=== PATIENT | male | born 1965 | race Caucasian/White ===

== ENCOUNTER 2021-03-15 09:31 | Inpatient (IN) | payer MEDICARE ==
[2021-03-15] VITALS (8 sets, daily range): BP systolic 94–111; BP diastolic 59–73
[~2021-03-15] VITALS: Ht 193 cm; Wt 83.5 kg
[2021-03-15] MEDS ORDERED: SODIUM CHLORIDE 0.9% 1000ML 1,000 ML ONE ×3 (09:55→10:24)
[2021-03-15 09:59] LABS: BASOPHILS # (AUTO) 0.1 (0.0-0.1); BASOPHILS % 0.5 % (0.0-1.0); EOSINOPHILS % 0.2 % (0.0-6.0); HEMATOCRIT 53.5 % (38.2-49.6); HEMOGLOBIN 15.1 g/dL (14.0-18.0); LYMPHOCYTES # (AUTO) 1.6 (1.0-3.2); MEAN CORPUSCULAR HEMOGLOBIN 26.3 pg (28-32); MEAN CORPUSCULAR HGB CONC 28.2 g/dL (31-35); MONOCYTES # (AUTO) 0.6 (0.2-0.8); MONOCYTES % 3.2 % (4.4-11.3); NEUTROPHILS # (AUTO) 15.5 (2.1-6.9); NEUTROPHILS % 85.4 % (38.7-80.0); PLATELET COUNT 471 x10e3/uL (140-360); RED BLOOD COUNT 5.75 x10e6/uL (4.3-5.7); RED CELL DISTRIBUTION WIDTH 15.8 % (11.7-14.4)
[2021-03-15] MEDS ORDERED: CEFTRIAXONE 1 GM in SODIUM CHLORIDE 0.9% 50ML 50 ML IV ONE (10:00)
[2021-03-15 10:19] LABS: ALBUMIN 2.2 g/dL (3.5-5.0); ALBUMIN/GLOBULIN RATIO 0.4 (0.8-2.0); ANION GAP 39.6 mmol/L (8-16); CREATININE, SERUM 3.38 mg/dL (0.72-1.25); POTASSIUM 5.6 mmol/L (3.5-5.1)
[2021-03-15] MEDS ORDERED: SODIUM CHLORIDE 0.9% 1000ML 1,000 ML IV STA ×2 (10:22→14:57)
[2021-03-15] MEDS ORDERED: Vancomycin IV 1 GM in SODIUM CHLORIDE 0.9% 250ML 250 ML IV STA (10:30)
[2021-03-15] MEDS ORDERED: CEFEPIME 1 GM in SODIUM CHLORIDE 0.9% 50ML 50 ML IV ONE (10:30)
[2021-03-15] MEDS ORDERED: ONDANSETRON HCL INJ 2MG/ML 2ML 2 MG/ML VIAL IV STA (10:32)
[2021-03-15] MEDS: SODIUM CHLORIDE 0.9% 1000ML 1,000 ML IV SCH ×2 (10:34→10:44)
[2021-03-15] MEDS ORDERED: ALBUTEROL SULF 0.083% NEB SOLN 3 ML NEB NEB STA (10:42)
[2021-03-15] MEDS ORDERED: ONDANSETRON HCL INJ 2MG/ML 2ML 2 MG/ML VIAL ONE (10:44)
[2021-03-15] MEDS ORDERED: LORAZEPAM INJ 2 MG/ML VIAL IV ONE ×2 (10:45→11:00)
[2021-03-15] MEDS ORDERED: INSULIN REGULAR, HUMAN 3ML VL 100 UNIT in SODIUM CHLORIDE 0.9% 100 ML 99 ML IV SCH ×2 (10:45)
[2021-03-15] MEDS ORDERED: SODIUM CHLORIDE 0.9% 250ML 250 ML ONE (10:48)
[2021-03-15] MEDS ORDERED: TRIMETHOPRIM IV ONE (11:00)
[2021-03-15] MEDS ORDERED: METHYLPREDNISOLONE SOD SUCC 125 MG/2ML VIAL IV SCH (11:00)
[2021-03-15] MEDS ORDERED: DEXTROSE 5% IV ONE (11:00)
[2021-03-15] MEDS ORDERED: SULFAMETHOXAZOLE IV ONE (11:00)
[2021-03-15] MEDS ORDERED: SODIUM CHLORIDE 0.9% 250ML 250 ML IV ONE ×2 (11:15)
[2021-03-15 12:31] LABS: ABG PH 7.26 (7.35-7.45)
[2021-03-15 12:32] LABS: ABG HCO3 18 mmol/L (22-26); ABG PCO2 40 mmHg (35-45); ABG PO2 312 mmHg (80-105); ABG TCO2 19
[2021-03-15 12:45] LABS: CLARITY,URINE CLOUDY (CLEAR); COLOR,URINE YELLOW (YELLOW); KETONES,URINE TRACE (NEGATIVE); LEUKOCYTE ESTERASE ,URINE NEGATIVE (NEGATIVE); NITRITE,URINE NEGATIVE (NEGATIVE); PROTEIN,URINE DIPSTICK NEGATIVE (NEGATIVE); URINE UROBILINOGEN 0.2 mg/dL (0.2 - 1)
[2021-03-15 12:55] LABS: BACTERIA,URINE MANY /HPF; EPITHELIAL CELLS,URINE FEW /LPF
[2021-03-15] MEDS ORDERED: DEXTROSE 50% SYRINGE 50 ML IV PRN (14:00)
[2021-03-15] MEDS ORDERED: Vancomycin IV 1 GM in SODIUM CHLORIDE 0.9% 250ML 250 ML IV ONE (14:00)
[2021-03-15 14:09] LABS: ANION GAP 24.8 mmol/L (8-16); CALCIUM 7.4 mg/dL (8.4-10.2); CREATININE, SERUM 2.85 mg/dL (0.72-1.25); POTASSIUM 3.8 mmol/L (3.5-5.1)
[2021-03-15] MEDS: INSULIN REGULAR, HUMAN 3ML VL 100 UNIT in SODIUM CHLORIDE 0.9% 100 ML IV SCH ×2 (14:31)
[2021-03-15 14:34] LABS: CHOL/HDL RATIO 11.4 (3.9-4.7); CHOLESTEROL 227 MD/DL (0-199); HDL CHOLESTEROL 20 MG/DL (40-60); TRIGLYCERIDES 466 MG/DL (0-149)
[2021-03-15 14:57] LABS: FREE T4 (FREE THYROXINE) 0.89 ng/dL (0.8-1.8); THYROID STIMULATING HORMONE 1.068 uIU/mL (0.350-4.940)
[2021-03-15] MEDS ORDERED: CALCIUM GLUCONATE 10% INJ 4.65 MEQ in SODIUM CHLORIDE 0.9% 50ML 50 ML IV ONE (15:30)
[2021-03-15 17:13] LABS: ANION GAP 19.4 mmol/L (8-16); CALCIUM 7.8 mg/dL (8.4-10.2); CREATININE, SERUM 2.53 mg/dL (0.72-1.25); MAGNESIUM 2.7 MG/DL (1.3-2.1); POTASSIUM 3.4 mmol/L (3.5-5.1)
[2021-03-15 21:14] LABS: ANION GAP 16.6 mmol/L (8-16); CALCIUM 7.7 mg/dL (8.4-10.2); CREATININE, SERUM 2.29 mg/dL (0.72-1.25); POTASSIUM 3.6 mmol/L (3.5-5.1)
[2021-03-15] MEDS ORDERED: INSULIN REGULAR IN 0.9 % NACL 100 ML IV ONE (22:05)
[2021-03-16] VITALS (23 sets, daily range): BP systolic 86–117; BP diastolic 51–76
[2021-03-16] MEDS: INSULIN REGULAR, HUMAN 3ML VL 100 UNIT in SODIUM CHLORIDE 0.9% 100 ML IV SCH ×2 (04:16)
[2021-03-16 05:05] LABS: BASOPHILS # (AUTO) 0.1 (0.0-0.1); BASOPHILS % 0.4 % (0.0-1.0); EOSINOPHILS % 0.1 % (0.0-6.0); HEMATOCRIT 36.2 % (38.2-49.6); HEMOGLOBIN 11.5 g/dL (14.0-18.0); LYMPHOCYTES # (AUTO) 1.4 (1.0-3.2); LYMPHOCYTES % 8.1 % (18.0-39.1); MEAN CORPUSCULAR HEMOGLOBIN 26.3 pg (28-32); MEAN CORPUSCULAR HGB CONC 31.8 g/dL (31-35); MEAN CORPUSCULAR VOLUME 82.6 fL (81-99); MONOCYTES # (AUTO) 0.5 (0.2-0.8); MONOCYTES % 2.7 % (4.4-11.3); NEUTROPHILS # (AUTO) 15.5 (2.1-6.9); NEUTROPHILS % 87.7 % (38.7-80.0); PLATELET COUNT 340 x10e3/uL (140-360); RED BLOOD COUNT 4.38 x10e6/uL (4.3-5.7); RED CELL DISTRIBUTION WIDTH 14.8 % (11.7-14.4)
[2021-03-16 05:54] LABS: ANION GAP 12.7 mmol/L (8-16); CALCIUM 7.9 mg/dL (8.4-10.2); CREATININE, SERUM 1.7 mg/dL (0.72-1.25); POTASSIUM 3.7 mmol/L (3.5-5.1)
[2021-03-16] MEDS ORDERED: TRIUMEQ 600-501 EACH (11:21)
[2021-03-16] MEDS ORDERED: CYCLOBENZAPRINE5 MG PO (11:21)
[2021-03-16] MEDS ORDERED: VICODIN HP 10-1 EAC1 PO (11:21)
[2021-03-16] MEDS ORDERED: VINPAT PO (11:21)
[2021-03-16] MEDS: DEXTROSE 5% 1,000 ML IV SCH (14:51)
[2021-03-17] VITALS (13 sets, daily range): BP systolic 87–125; BP diastolic 45–70
[2021-03-17] MEDS: DEXTROSE 5% 1,000 ML IV SCH ×3 (00:30→20:15)
[2021-03-17] MEDS ORDERED: TRIUMEQ 600-501 EACH PO (05:48)
[2021-03-17] MEDS ORDERED: GABAPENTIN100 MG PO (05:48)
[2021-03-17] MEDS ORDERED: ESOMEPRAZOLE MA40 MG PO (05:48)
[2021-03-17] MEDS ORDERED: PIOGLITAZONE HC15 MG PO (05:48)
[2021-03-17] MEDS ORDERED: AMBIEN10 MG PO (05:48)
[2021-03-17] MEDS ORDERED: JANUVIA100 MG PO (05:48)
[2021-03-17] MEDS ORDERED: VIMPAT200 MG PO (05:48)
[2021-03-17 06:39] LABS: HEMATOCRIT 35.9 % (38.2-49.6); HEMOGLOBIN 11.1 g/dL (14.0-18.0); MEAN CORPUSCULAR HEMOGLOBIN 26.2 pg (28-32); MEAN CORPUSCULAR HGB CONC 30.9 g/dL (31-35); MEAN CORPUSCULAR VOLUME 84.7 fL (81-99); PLATELET COUNT 253 x10e3/uL (140-360); RED BLOOD COUNT 4.24 x10e6/uL (4.3-5.7); RED CELL DISTRIBUTION WIDTH 15.2 % (11.7-14.4)
[2021-03-17 06:59] LABS: ANION GAP 9.4 mmol/L (8-16); CALCIUM 7.9 mg/dL (8.4-10.2); CREATININE, SERUM 1.01 mg/dL (0.72-1.25); POTASSIUM 3.4 mmol/L (3.5-5.1)
[2021-03-17] MEDS: BALSAM PERU/CASTOR OIL 60 GM OINT...G. TP SCH (07:59)
[2021-03-17] MEDS ORDERED: CEFTRIAXONE 1 GM in SODIUM CHLORIDE 0.9% 50ML 50 ML IV SCH (09:00)
[2021-03-17 09:40] LABS: EOSINOPHILS % (MANUAL) 1 % (0-7); LYMPHOCYTES % (MANUAL) 8 % (19-48); MONOCYTES % (MANUAL) 1 % (3.4-9.0); NEUTROPHILS % (MANUAL) 89 % (40-74); PROMYELOCYTES % (MANUAL) 1 % (0-0)
[2021-03-17 09:41] LABS: PLATELET ESTIMATE ADEQUATE
[2021-03-17 09:42] LABS: PLATELET MORPHOLOGY COMMENT NORMAL; RBC MORPHOLOGY COMMENT NORMAL
[2021-03-17] MEDS ORDERED: POTASSIUM CHLORIDE 20 MEQ TAB CR PO STA (10:21)
[2021-03-17] MEDS ORDERED: BISMUTH SUBSALICYLATE 262 MG TAB PO PRN (14:15)
[2021-03-17] MEDS: LACOSAMIDE 50 MG TABLET PO SCH ×2 (15:06→21:31)
[2021-03-17] MEDS: GABAPENTIN 100 MG CAP PO SCH ×2 (15:06→21:31)
[2021-03-17] MEDS: LAMIVUDI PO SCH (15:25)
[2021-03-17] MEDS: ABACAVIR PO SCH (15:25)
[2021-03-17] MEDS: DOLUTEGRAVIR PO SCH (15:25)
[2021-03-17] MEDS ORDERED: CHOLESTYRAMINE 4 GM PACKET PO PRN (16:15)
[2021-03-17] MEDS: INSULIN LISPRO 100 UNIT/1 ML 3ML VIAL SQ SCH ×3 (16:30→21:00)
[2021-03-17] MEDS ORDERED: INSULIN LISPRO 100 UNIT/1 ML 3ML VIAL SQ ONE (16:30)
[2021-03-17] MEDS ORDERED: INSULIN GLARGINE 100 UNITS/ML VIAL SQ SCH ×2 (21:00)
[2021-03-18] VITALS (8 sets, daily range): BP systolic 85–125; BP diastolic 55–67
[2021-03-18] MEDS: DEXTROSE 5% 1,000 ML IV SCH ×2 (05:18→16:50)
[2021-03-18 06:34] LABS: BASOPHILS % 0.1 % (0.0-1.0); EOSINOPHILS # (AUTO) 0.1 (0.0-0.4); EOSINOPHILS % 0.6 % (0.0-6.0); HEMATOCRIT 34.5 % (38.2-49.6); HEMOGLOBIN 10.6 g/dL (14.0-18.0); LYMPHOCYTES # (AUTO) 1.3 (1.0-3.2); LYMPHOCYTES % 16.4 % (18.0-39.1); MEAN CORPUSCULAR HEMOGLOBIN 26.2 pg (28-32); MEAN CORPUSCULAR HGB CONC 30.7 g/dL (31-35); MEAN CORPUSCULAR VOLUME 85.2 fL (81-99); MONOCYTES # (AUTO) 0.3 (0.2-0.8); MONOCYTES % 3.5 % (4.4-11.3); NEUTROPHILS # (AUTO) 6.1 (2.1-6.9); NEUTROPHILS % 78.1 % (38.7-80.0); PLATELET COUNT 195 x10e3/uL (140-360); RED BLOOD COUNT 4.05 x10e6/uL (4.3-5.7); RED CELL DISTRIBUTION WIDTH 15.2 % (11.7-14.4)
[2021-03-18 06:57] LABS: ALBUMIN 1.6 g/dL (3.5-5.0); ALBUMIN/GLOBULIN RATIO 0.4 (0.8-2.0); ANION GAP 15.1 mmol/L (8-16); CALCIUM 7.7 mg/dL (8.4-10.2); CREATININE, SERUM 1.08 mg/dL (0.72-1.25); POTASSIUM 4.1 mmol/L (3.5-5.1)
[2021-03-18] MEDS: INSULIN LISPRO 100 UNIT/1 ML 3ML VIAL SQ SCH ×7 (07:30→20:57)
[2021-03-18] MEDS: CEFTRIAXONE 1 GM in SODIUM CHLORIDE 0.9% 50ML 50 ML IV SCH (08:49)
[2021-03-18] MEDS: BALSAM PERU/CASTOR OIL 60 GM OINT...G. TP SCH (08:50)
[2021-03-18] MEDS: LACOSAMIDE 50 MG TABLET PO SCH ×3 (08:50→20:56)
[2021-03-18] MEDS: DOLUTEGRAVIR PO SCH (08:50)
[2021-03-18] MEDS: LAMIVUDI PO SCH (08:50)
[2021-03-18] MEDS: ABACAVIR PO SCH (08:50)
[2021-03-18] MEDS: GABAPENTIN 100 MG CAP PO SCH ×3 (08:50→20:56)
[2021-03-18 09:18] LABS: LYMPHOCYTES % (MANUAL) 18 % (19-48); MONOCYTES % (MANUAL) 1 % (3.4-9.0); NEUTROPHILS % (MANUAL) 79 % (40-74); PLATELET ESTIMATE ADEQUATE; PLATELET MORPHOLOGY COMMENT NORMAL; RBC MORPHOLOGY COMMENT NORMAL
[2021-03-18] MEDS: INSULIN GLARGINE 100 UNITS/ML VIAL SQ SCH (20:57)
[2021-03-19] VITALS (9 sets, daily range): BP systolic 93–102; BP diastolic 56–75
[2021-03-19] MEDS: DEXTROSE 5% 1,000 ML IV SCH ×2 (02:50→12:57)
[2021-03-19 05:04] LABS: BASOPHILS % 0.1 % (0.0-1.0); EOSINOPHILS # (AUTO) 0.1 (0.0-0.4); EOSINOPHILS % 1.2 % (0.0-6.0); HEMATOCRIT 34.9 % (38.2-49.6); HEMOGLOBIN 10.8 g/dL (14.0-18.0); LYMPHOCYTES # (AUTO) 1.6 (1.0-3.2); LYMPHOCYTES % 20.1 % (18.0-39.1); MEAN CORPUSCULAR HEMOGLOBIN 26.3 pg (28-32); MEAN CORPUSCULAR HGB CONC 30.9 g/dL (31-35); MEAN CORPUSCULAR VOLUME 84.9 fL (81-99); MONOCYTES # (AUTO) 0.3 (0.2-0.8); MONOCYTES % 4.2 % (4.4-11.3); NEUTROPHILS # (AUTO) 5.6 (2.1-6.9); NEUTROPHILS % 73.1 % (38.7-80.0); PLATELET COUNT 198 x10e3/uL (140-360); RED BLOOD COUNT 4.11 x10e6/uL (4.3-5.7)
[2021-03-19 05:27] LABS: ANION GAP 12.1 mmol/L (8-16); CALCIUM 7.7 mg/dL (8.4-10.2); CREATININE, SERUM 1.07 mg/dL (0.72-1.25); MAGNESIUM 2.2 MG/DL (1.3-2.1); PHOSPHORUS 2.3 MG/DL (2.3-4.7); POTASSIUM 4.1 mmol/L (3.5-5.1)
[2021-03-19 05:54] LABS: FERRITIN 417.26 ng/mL (21.81-274.66)
[2021-03-19] MEDS: INSULIN LISPRO 100 UNIT/1 ML 3ML VIAL SQ SCH ×7 (07:48→21:00)
[2021-03-19] MEDS: CEFTRIAXONE 1 GM in SODIUM CHLORIDE 0.9% 50ML 50 ML IV SCH (08:49)
[2021-03-19] MEDS: GABAPENTIN 100 MG CAP PO SCH ×3 (08:50→21:15)
[2021-03-19] MEDS: BALSAM PERU/CASTOR OIL 60 GM OINT...G. TP SCH (08:50)
[2021-03-19] MEDS: LACOSAMIDE 50 MG TABLET PO SCH ×3 (08:50→21:15)
[2021-03-19] MEDS: DOLUTEGRAVIR PO SCH (09:30)
[2021-03-19] MEDS: ABACAVIR PO SCH (09:30)
[2021-03-19] MEDS: LAMIVUDI PO SCH (09:30)
[2021-03-19] MEDS: INSULIN GLARGINE 100 UNITS/ML VIAL SQ SCH (21:00)
[2021-03-20] VITALS (7 sets, daily range): BP systolic 102–112; BP diastolic 58–77
[2021-03-20] MEDS: INSULIN LISPRO 100 UNIT/1 ML 3ML VIAL SQ SCH ×7 (08:40→20:24)
[2021-03-20] MEDS: GABAPENTIN 100 MG CAP PO SCH ×3 (09:00→20:24)
[2021-03-20] MEDS: CEFTRIAXONE 1 GM in SODIUM CHLORIDE 0.9% 50ML 50 ML IV SCH (09:03)
[2021-03-20] MEDS: BALSAM PERU/CASTOR OIL 60 GM OINT...G. TP SCH (09:04)
[2021-03-20] MEDS: ABACAVIR PO SCH (09:04)
[2021-03-20] MEDS: DOLUTEGRAVIR PO SCH (09:04)
[2021-03-20] MEDS: LAMIVUDI PO SCH (09:04)
[2021-03-20] MEDS: LACOSAMIDE 50 MG TABLET PO SCH ×3 (09:04→20:24)
[2021-03-20] MEDS: INSULIN GLARGINE 100 UNITS/ML VIAL SQ SCH (20:34)
[2021-03-20] MEDS ORDERED: CEPHALEXIN 500 MG CAP PO SCH (21:00)
== END 2021-03-20 20:26 | DRG 974 ==
LOC: ER 10:07 → ERHOLD 12:11 → ICU 17:45 → MED/SURG2 03-17 21:05
PROVIDERS: ADMIT Internal Medicine; ATTEND Internal Medicine
DX: A41.9 Sepsis, unspecified organism (principal); E10.10 Type 1 diabetes mellitus with ketoacidosis without coma; B20 Human immunodeficiency virus [HIV] disease; J96.01 Acute respiratory failure with hypoxia; B59 Pneumocystosis; N17.9 Acute kidney failure, unspecified; E87.0 Hyperosmolality and hypernatremia; N39.0 Urinary tract infection, site not specified; R65.20 Severe sepsis without septic shock; Z79.4 Long term (current) use of insulin; E10.42 Type 1 diabetes mellitus with diabetic polyneuropathy; E10.22 Type 1 diabetes mellitus with diabetic chronic kidney disease; N18.9 Chronic kidney disease, unspecified; B96.1 Klebsiella pneumoniae [K. pneumoniae] as the cause of diseases classified elsewhere; R53.81 Other malaise; T38.3X6A Underdosing of insulin and oral hypoglycemic [antidiabetic] drugs, initial encounter; Z20.822 Contact with and (suspected) exposure to COVID-19; E87.6 Hypokalemia; D64.9 Anemia, unspecified
CPT/HCPCS: 36415; 36600; 51700; 70450; 71045; 71250; 74176; 74230; 80048; 80053; 80061; 81001; 82140; 82728; 82805; 82948; 83036; 83540; 83605; 83690; 83735; 84100; 84439; 84443; 84466; 85007; 85025; 85027; 87040; 87071; 87086; 87186; 87205; 96360; 96361; 96372; 97139; 99251; 99285; J0456; J0610; J0692; J0696; J1815; J1817; J2060; J2405; J2930; J3370; J7030; J7050; J7060; J7070; U0002